=== PATIENT | female | born 1995 | race Two or more races ===

== ENCOUNTER 2023-12-02 08:37 | Emergency (ER) | payer OTHER ==
[~2023-12-02] VITALS: Ht 152.4 cm; Wt 68.5 kg
[2023-12-02 09:02] LABS: Urine Bacteria None Seen /hpf (None Seen)
[2023-12-02 09:09] LABS: Urine Blood 3+ /uL (Negative); Urine Clarity Turbid (Clear); Urine Color Light-Yellow (Yellow); Urine Mucus FEW (None Seen); Urine Protein, UAD Negative (Negative); Urine Specific Gravity 1.021 (1.001-1.035); Urine Urobilinogen Normal (Negative); Urine WBC 5 /hpf (0 - 5); Urine pH 7.5 (5.0-9.0)
[2023-12-02 09:17] LABS: Basophils # (auto) 0 10 ^3/uL (0-0.2); Basophils % (auto) 0.7 % (0.0-2.0); Eosinophils # (auto) 0.2 10 ^3/uL (0-0.8); Eosinophils % (auto) 3.5 % (0.0-7.0); Hematocrit 41.1 % (36.0-46.0); Hemoglobin 13.6 g/dL (12.2-16.2); Lymphocytes # (auto) 2.2 10 ^3/uL (0.4-5.4); Lymphocytes % (auto) 42.4 % (10.0-50.0); Mean Corpuscular Hemoglobin 30.7 pg (28.0-32.0); Mean Corpuscular Hgb Conc. 33.1 g/dL (32.0-36.0); Mean Corpuscular Volume 92.6 fL (80.0-100.0); Monocytes # (auto) 0.5 10 ^3/uL (0-1.3); Monocytes % (auto) 9.7 % (0.0-12.0); Neutrophils # (auto) 2.3 10 ^3/uL (1.6-8.6); Neutrophils % (auto) 43.7 % (37.0-80.0); Nucleated Red Blood Cells % 0.1 %; Red Blood Cells 4.44 10^6/uL (4.0-5.20); Red Cell Distribution Width 13.3 % (11.8-14.3); White Blood Cell 5.2 10^3/uL (4.4-10.8)
[2023-12-02 09:26] LABS: Alanine Aminotransferase 14 U/L (7-40); Albumin 4.6 g/dL (3.2-4.8); Alkaline Phosphatase 71 U/L (46-116); Anion Gap 6 (5-15); Aspartate Aminotransferase 12 U/L (13-40); BUN/Creatinine Ratio 18.3 (10.0-20.0); Bilirubin, Total 0.3 mg/dL (0.2-1.0); Blood Urea Nitrogen 13 mg/dL (9-23); Calcium 9.7 mg/dL (8.5-10.1); Carbon Dioxide 27 mmol/L (20-30); Chloride 106 mmol/L (98-107); Glucose 96 mg/dL (74-106); Potassium 3.9 mmol/L (3.5-5.1); Sodium 139 mmol/L (136-145); Total Protein 7.1 g/dL (5.7-8.2)
[2023-12-02 09:57] VITALS: BP 104/64; PULSE 75; RESP 75; O2SAT 97
== END 2023-12-02 09:59 | disposition home or self-care (01) ==
LOC: ER 08:37
DX: N92.0 Excessive and frequent menstruation with regular cycle (principal); R10.2 Pelvic and perineal pain
CPT/HCPCS: 36415; 80053; 81001; 84702; 85025